=== PATIENT | male | born 1960 | race Caucasian/White ===

== ENCOUNTER 2020-03-11 09:25 | Emergency (ER) | payer BC ==
[~2020-03-11] VITALS: Ht 188 cm; Wt 99.8 kg
[2020-03-11 09:48] LABS: BASOPHILS % (AUTO) 0.5 % (0.0-2.0); EOSINOPHILS % (AUTO) 1.6 % (0.0-6.0); HEMATOCRIT 41 % (39-51); LYMPHOCYTES # (AUTO) 1.7 /CMM (0.8-4.8); LYMPHOCYTES % (AUTO) 32.9 % (20.0-44.0); MEAN CORPUSCULAR HGB CONC 34 g/dl (31.0-36.0); MEAN CORPUSCULAR VOLUME 90 fL (80-96); MONOCYTES # (AUTO) 0.4 /CMM (0.1-1.30); MONOCYTES % (AUTO) 8.2 % (2.0-12.0); NEUTROPHILS # (AUTO) 2.9 /CMM (1.8-8.9); NEUTROPHILS % (AUTO) 56.8 % (43.0-81.0); PLATELET COUNT (AUTO) 163 /CMM (150-450); RED BLOOD CELL COUNT(AUTO) 4.58 MIL/uL (4.5-6.0)
--- NOTE | 2020-03-11 09:50 | NUR ---
patient came in to the er c/o diffused chest pain x 2 weeks with L arm numbness this morning. On room air, breathing evenly and unlabored. connected to the monitor and pulse ox, kept comfortable, will continue to monitor accordingly.
[2020-03-11 09:56] LABS: CALCIUM, SERUM 8.3 mg/dL (8.5-10.1); CARBON DIOXIDE 30 mmol/L (21-32); CHLORIDE 105 mmol/L (98-107); CREATININE 1.2 mg/dL (0.6-1.3); GLUCOSE 139 mg/dL (74-106); POTASSIUM 3.9 mmol/L (3.5-5.1); SODIUM SERUM 140 mmol/L (136-145); UREA NITROGEN, BLOOD 19 mg/dL (7-18)
[2020-03-11] MEDS ORDERED: ASPIRIN EC 325 MG TABLET.DR PO ONE (10:55)
[2020-03-11] MEDS ORDERED: ASPIRIN 325 MG TABLET PO ONE (11:00)
[2020-03-11] MEDS ORDERED: METOPROLOL TARTRATE INJ 5 MG/5 ML AMPUL ONE (14:56)
[2020-03-11] MEDS ORDERED: IOHEXOL-350 100 ML VIAL IV ONE (15:03)
[2020-03-11] MEDS ORDERED: IV NS 0.9% 250 ML IV ONE (15:04)
[2020-03-11 16:51] VITALS: BP 131/81
--- NOTE | 2020-03-11 16:52 | NUR ---
Patient discharged to home in stable condition. Written and verbal after care instructions given. Patient verbalizes understanding of instruction.IV removed. Catheter intact and site benign. Pressure and 4x4 applied to site. No bleeding noted.
== END 2020-03-11 16:52 | disposition home or self-care (01) ==
LOC: ER 09:31
DX: R07.89 Other chest pain (principal); R42 Dizziness and giddiness; E78.5 Hyperlipidemia, unspecified; Z79.82 Long term (current) use of aspirin
CPT/HCPCS: 36415; 71045; 75574; 80048; 84484 ×2; 85025; 85378; 93005; 93307; 99285; J3490; J7050; Q9967